=== PATIENT | female | born 1980 | race Caucasian/White ===

== ENCOUNTER 2021-10-18 16:33 | Emergency (ER) | payer OTHER, SELFPAY ==
[2021-10-18 16:45] VITALS: BP 222/108; PULSE 80; RESP 20; TEMP 36; O2SAT 100; BMI 53.1
[2021-10-18] MEDS: LIDO 1%/SOD BICARB 8.4% (10ML) 10 ML SYRINGE INJ (16:53)
[2021-10-18] MEDS: TET,DIPH,PERTUSS(ACELL),VAC/PF 0.5 ML SYRINGE IM (16:54)
--- NOTE | 2021-10-19 09:04 | ED.WOUNDLAC ---
HPI - Wound/Laceration General Chief Complaint: Wound/Laceration Stated Complaint: DOG BITE ON THE LIP Time Seen by Provider: 10/18/21 16:40 Source: patient Mode of arrival: Ambulatory History of Present Illness HPI narrative: 40F former smoker with noncontributory medical history presents with a chief complaint of a dog bite to her face which involves her upper and lower lip. She states that she was playing with her dog, a new [employer] rescue, with unknown vaccination status when it jumped up and nipped her in the face. She states the dog had been acting appropriate and at baseline otherwise. Patient's tetanus will need to be updated. She has a large gaping laceration to her upper lip and a smaller on the lower lip that will require repair. She is otherwise well and free of complaint. Related Data Previous Rx's Medication Instructions Recorded amoxicillin 875 mg-potassium 1 tab PO BID #20 tab 10/18/21 clavulanate 125 mg tablet (Augmentin) Review of Systems Review of Systems Narrative: GENERAL: Denies chills, fatigue, malaise, fever, sweats. HEENT: Denies sinus pain, ear pain, sore throat, difficulty swallowing, dizziness. RESPIRATORY: Denies dyspnea, cough, wheezing, hemoptysis, sputum. CARDIOVASCULAR: Denies chest pain, palpitations, orthopnea, edema, GASTROINTESTINAL: Denies nausea, vomiting, abdominal pain, diarrhea, constipation, melena. : Denies dysuria, frequency, incontinence, hematuria, urinary retention. MUSCULOSKELETAL: denies weakness, joint pain, or bony pain SKIN: See HPI NEUROLOGIC: Denies weakness, headache, numbness, change in speech, confusion, seizures, incoordination. PSYCHIATRIC: No concerning psychosocial issues. 12 point review of systems is negative except for those stated above Patient History Social History Smoking Status: Former smoker Smoking Status: Former smoker alcohol intake frequency: a few times a week Substance Use Type: marijuana Exam Narrative Exam Narrative: GEN: AOx3 and in mild distress FACE: Deep, 2 cm laceration, gaping, left upper lip, crossing vermilion border and involving or vehicular is or is, it is not through and through. Minimal active bleeding, no foreign body. A 2nd much smaller, 0.25 cm laceration on lower lip that does cross the vermilion border. EYES: Pupils are equal, round, and reactive to light and accommodation. Extraoccular muscles are intact bilaterally. There is no subconjunctival hemorrhage or exudate. CHEST: Lungs are clear to auscultation bilaterally and free of wheezes, rales, or rhonchi. Heart rate is regular rhythm, there are no murmurs, clicks, rubs, or gallops. There is no chest wall tenderness. ABD: Abdomen is soft and nontender. There is no guarding or rebound. Bowel sounds are normal in all 4 quadrants. There is no mass or organomegaly. EXT: Full painless ROM of all extremities with no loss of sensation or strength. SKIN: Warm, pink, and dry. No erythema or rash Initial Vital Signs Initial Vital Signs: Vital Signs Temperature 96.8 F L 10/18/21 16:45 Pulse Rate 80 10/18/21 16:45 Respiratory Rate 20 10/18/21 16:45 Blood Pressure 222/108 H 10/18/21 16:45 Pulse Oximetry 100 10/18/21 16:45 Procedures Laceration Repair Laceration 1: Site: lip Side (If applicable): left Size (cm): 2 Description: flap, clean and involves alex border Depth: involves muscle layer Pre-repair: wound explored and irrigated extensively Skin layer closed with: nylon Size (cm): 6-0 Number of sutures: 10 Technique: simple, interrupted Technique: simple, interrupted Muscle layer closed with: vicryl Size: 5-0 Number of sutures: 3 Technique: simple, interrupted Laceration 2: Site: lip Side (If applicable): right Size (cm): 0.25 Description: linear Depth: simple, single layer Local Anesthetic: lidocaine 1% and with bicarb Amount of anesthesia used (mL): 2 Pre-repair: wound explored Skin layer closed with: nylon Size (cm): 6-0 Number of sutures: 2 Technique: simple, interrupted Nerve Block Nerve Block 1: Local Anesthetic: with bicarb Amount of anesthesia used (mL): 3 Side: right Intraoral Nerve Block: infraorbital Procedure Successful: Yes Patient Tolerated Procedure: Well Complications: none Course Orders Ordered: ED Orders 10/19/21 09:15 MR cervical spine wo con Stat Discontinued Medications Dexamethasone (Dexamethasone 10 Mg/Ml Vial) 10 mg PO NOW ONE Stop: 10/19/21 09:16 Diphtheria/Tetanus/Acell Pertussis (Tet,Diph,Pertuss(Acell),Vac/Pf 0.5 Ml Syringe) 0.5 ml IM .ONCE ONE Stop: 10/18/21 16:50 Last Admin: 10/18/21 16:54 Dose: 0.5 ml Documented by: MARCELLO Gabapentin (Gabapentin 600 Mg Tablet) 600 mg PO NOW ONE Stop: 10/19/21 09:16 Lidocaine/Sodium Bicarbonate (Lido 1%/Sod Bicarb 8.4% (10ml) 10 Ml Syringe) 10 ml INJ NOW ONE Stop: 10/18/21 16:50 Last Admin: 10/18/21 16:53 Dose: 10 ml Documented by: MARCELLO Discharge Plan Departure Patient Disposition: Home Clinical Impression: Laceration, Dog bite Instructions: DI for Laceration Repair, DI for Animal Bites Activity Restrictions/Additional Instructions: Please keep the wound clean and dry to the best of your ability. Please monitor for signs of infection such as redness to the skin or increasing pain. Have the sutures removed by your doctor in about 7 days. If you are unable to get into your doctor, we would be happy to remove the sutures in that same timeframe. Prescriptions: New amoxicillin-pot clavulanate [Augmentin] 875-125 mg tablet 1 tab PO BID Qty: 20 0RF Referrals: Salvador Newell MD [Physician] -
== END 2021-10-18 17:59 | disposition home or self-care (01) ==
PROVIDERS: Emergency Provider Emergency Medicine
DX: S01.511A Laceration without foreign body of lip, initial encounter (principal); W54.0XXA Bitten by dog, initial encounter; Z23 Encounter for immunization
CPT/HCPCS: 12011; 90471; 99283; 99284; 90715